=== PATIENT | male | born 1965 | race Two or more races ===

== ENCOUNTER 2019-08-29 10:21 | Day surgery (SDC) | payer BC ==
[2019-08-25 14:59] VITALS: BMI 34.4
--- NOTE | 2019-08-29 08:55 | P.HPIHPCON ---
History of Present Illness H&P Date: 08/29/19 Chief Complaint: bilateral nephrolithasis Mr Martinez is 54 yo male with hx of right sided ureteral calculi and left side renal calculi. I discussed with him the option of ureteroscopy Vs ESWL. I discussed with him risk and benefit of each procedure. He agreed to proceed with ureteroscopy. I discussed with him risk of bleeding, infection and injury to the ureter. I discussed risk from anesthesia with him. He understood all risks and agreed to proceed Consent for Procedure: I have explained the operation/procedure to the patient, including the risks, benefits, side effects, alternative therapies (including not receiving the proposed treatment or service), the likelihood of the patient achieving his/her goals, and potential recuperation problems for the procedure/sedation/analgesia, as well as any blood products, if indicated. I also explained to the patient the risks, benefits and side effects of the alternatives, as well as the risks related to not receiving the proposed procedure, care, treatment, or services. - Constitutional Constitutional: Denies chills, Denies fever - EENT Ears, nose, mouth and throat: Denies headache, Denies sore throat - Cardiovascular Cardiovascular: Denies chest pain, Denies shortness of breath - Respiratory Respiratory: Denies cough, Denies 7 Past Medical History Past Medical History: Diabetes Mellitus, Hypertension Additional Past Medical History / Comment(s): KIDNEY STONES History of Any Multi-Drug Resistant Organisms: None Reported Past Surgical History: Hernia Repair, Orthopedic Surgery Additional Past Surgical History / Comment(s): LT ACHILLES TENDON REPAIR. COLOOSCOPY. REPAIR DEVIATED SEPTUM Past Anesthesia/Blood Transfusion Reactions: No Reported Reaction Smoking Status: Former smoker - Past Family History Mother History Unknown: Yes Family Medical History: Unable to Obtain Additional Family Medical History / Comment(s): PT UNSURE OF FAMILY HX Medications and Allergies Home Medications Medication Instructions Recorded Confirmed Type Acetaminophen-Codeine 300-30mg 1 tab PO Q4H PRN 08/25/19 08/25/19 History [Tylenol w/codeine #3] Ciprofloxacin HCl [Cipro] 500 mg PO BID 08/25/19 08/25/19 History Ketorolac [Toradol] 10 mg PO Q6HR PRN 08/25/19 08/25/19 History Losartan/Hydrochlorothiazide 1 tab PO DAILY 08/25/19 08/25/19 History [Losartan-Hctz 100-12.5 mg Tab] Tamsulosin [Flomax] 0.4 mg PO DAILY 08/25/19 08/25/19 History metFORMIN HCL [Glucophage] 500 mg PO DAILY 08/25/19 08/25/19 History Allergies Allergy/AdvReac Type Severity Reaction Status Date / Time No Known Allergies Allergy Verified 08/25/19 14:46 Surgical - Exam - General well developed, well nourished, no distress - Eyes normal ocular movement, no icteric - ENT no hearing loss, no congestion - Respiratory normal expansion, normal respiratory effort - Abdomen Abdomen: soft, non tender, no guarding, no rigid, no rebound Assessment and Plan Assessment: 54 yo male with hx of right sided ureteral stone and left sided renal stone -OR for bilateral ureteroscopy w/holmium laser and stent placement
[~2019-08-29 10:21] MED LIST: DEXAMETHASONE SOD PHOSPHATE 10 MG/ML 1 ML VIAL IV ONE; LACTATED RINGERS 1,000 ML IV SCH; LIDOCAINE 1% (10MG/ML) FOR IV START INTRADERMA PRN; MIDAZOLAM 2 MG/2 ML VIAL IV PRN
[2019-08-29 10:57] VITALS: RESP 16
--- NOTE | 2019-08-29 10:58 | XR ---
KUB HISTORY: Preop lithotripsy, bilateral stones Frontal KUB and 2 images There is a calcification present in the right hemipelvis. It measures approximately 6 to 7 mm in grea test dimension. There are overlying artifacts. Bowel gas may obscure detail overlying the kidneys. Qu estionable calcification superimposed over the upper pole the left kidney. No evident bowel obstructi on or pneumoperitoneum. There is multilevel spondylosis present. Bone mineralization is normal. IMPRESSION: There may be a distal right ureteral calculus. Possible nephrolithiasis. Additional findi ngs above.
[2019-08-29 11:08] LABS: Glucose,Whole Blood 131 mg/dL (75-99)
[2019-08-29] MEDS ORDERED: ONDANSETRON 4 MG/2 ML VIAL IVP ONE (11:12)
[2019-08-29] MEDS ORDERED: PROPOFOL 10 MG/ML 20 ML VIAL IV ONE (13:12)
[2019-08-29] MEDS ORDERED: fentaNYL (PF) 50 MCG/ML 2 ML AMP ONE (13:12)
[2019-08-29] MEDS ORDERED: GLYCOPYRROLATE 0.2 MG/ML 2 ML VIAL ONE (13:12)
[2019-08-29] MEDS ORDERED: LIDOCAINE 1% INJ 10MG/ML (20 ML MDV) ONE (13:12)
[2019-08-29] MEDS ORDERED: NEOSTIGMINE 1 MG/ML 10 ML VIAL ONE (13:12)
[2019-08-29] MEDS ORDERED: ROCURONIUM BROMIDE 10 MG/ML 5 ML VIAL IV ONE (13:12)
[2019-08-29] MEDS ORDERED: SUCCINYLCHOLINE CHLORIDE 100 MG/5 ML SYR IV ONE (13:12)
[2019-08-29] MEDS ORDERED: MIDAZOLAM 2 MG/2 ML VIAL ONE (13:12)
[2019-08-29] MEDS ORDERED: IOPAMIDOL-370 50ML BTL INJ ONE ×2 (13:33)
[2019-08-29 15:15] VITALS: TEMP 96.8
--- NOTE | 2019-08-29 15:19 | FL ---
Fluoroscopy HISTORY: Bilateral kidney stones 50 seconds fluoroscopy time supplied to the referring clinician. 2 intraoperative C-arm images docum ent the procedure. See dictated report from urology.
[2019-08-29 15:23] LABS: Glucose,Whole Blood 149 mg/dL (75-99)
[2019-08-29] MEDS: HYDROmorphone 0.5 MG/0.5 ML SYRINGE IVP PRN ×2 (15:25→15:36)
[2019-08-29] MEDS ORDERED: SODIUM CHLORIDE 0.9% 1,000 ML IV ONE ×3 (15:41)
[2019-08-29 16:54] VITALS: BP 156/90; PULSE 80
--- NOTE | 2019-09-01 17:57 | P.OP ---
Date of Procedure: 08/29/19 Preoperative Diagnosis: right ureteral calculi/Left renal calculi Postoperative Diagnosis: same Procedure(s) Performed: Cystoscopy,bilateral ureteroscopy, holmium laser lithotripsy, stone basketting and stent placement Implants: 6Fr X 26 cm stent bilaterally Anesthesia: GETA Surgeon: Rashid Werner Estimated Blood Loss (ml): 10 Pathology: other (right ureteral stone, left renal stone) Condition: stable Disposition: PACU Indications for Procedure: Mr Martinez is 54 yo male with hx of right sided ureteral calculi and left side renal calculi. I discussed with him the option of ureteroscopy Vs ESWL. I discussed with him risk and benefit of each procedure. He agreed to proceed with ureteroscopy. I discussed with him risk of bleeding, infection and injury to the ureter. I discussed risk from anesthesia with him. He understood all risks and agreed to proceed Operative Findings: right distal ureteral stone, left midpole renal stone, both stones fragmented using the holmium laser Description of Procedure: The patient was brought to the operating room, general anesthesia was induced. He was prepped and draped in sterile fashion and was placed in a dorsal lithotomy position. Cystoscope fitted with a 22 sheath was inserted per urethra, cystoscopy of the bladder was performed showed no abnormality within the bladder. Attention was then carried to the right ureteral orifice which was intubated with a sensor wire. Of note ureteral orifice was narrowed decision was made to proceed with ureteral balloon dilation on the right side. The balloon dilator was passed over the wire and the ureteral orifice was dilated using the balloon dilator. The balloon dilator was withdrawn with the wire in place. The cystoscope was removed. Next a semirigid ureteroscope was inserted per urethra and advanced up the right ureteral orifice. A stone was encountered in the distal ureter. The stone was fragmented using the holmium laser. The fragments were removed using the ZeroTip stone basket. After all the fragments were removed the ureteroscope was advanced past the stone site and up into the UPJ. No additional stones were encountered. Pullback ureteroscopy showed no additional stones or injury to the ureter. Next the cystoscope was backloaded over the wire. A 6-Lao by 26 cm stent was passed over the wire. The proximal curl was visulized on fluoroscopy, and the distal curl was visualized using the cystoscope. Attention was then carried to the left side. Which was intubated with a sensor wire. the cystoscope was removed with the wire in place, next a 1113 Lao access sheath was passed over the wire and into the proximal ureter. Flexible ureteroscope was inserted through the access sheath and advanced up into the renal pelvis. Renoscopy was performed which showed a stone in the midpole. Using the holmium laser the stone was fragmented into smaller fragments. The fragments were removed using the stone basket. Repeat ureteroscopy showed no injury to the renal pelvis, and no additional sizable fragments. At this time pullback ureteroscopy was performed which showed no injury to the ureter or any residual stones. Next a cystoscope was inserted and a 6-Lao by 26 cm stent was passed over the wire. The proximal curl was visualized on fluoroscopy and the distal distal curl was visualized using the cystoscope. The bladder was emptied and then the case. The patient tolerated procedure well and taken to PACU in stable condition
== END 2019-08-29 17:17 | disposition home or self-care (01) ==
LOC: OR 10:21
PROVIDERS: ATTEND Urology
DX: N20.2 Calculus of kidney with calculus of ureter (principal); I10 Essential (primary) hypertension; E11.9 Type 2 diabetes mellitus without complications; Z98.890 Other specified postprocedural states; Z87.442 Personal history of urinary calculi; Z87.891 Personal history of nicotine dependence; Z79.84 Long term (current) use of oral hypoglycemic drugs; Z79.899 Other long term (current) drug therapy
CPT/HCPCS: 74018; 52356; C2625; C1769; J2250; J1100; J2710; J2405; J2001; J3010; J0330; J2704; J1170; Q9967

== ENCOUNTER → 2022-10-08 | Outpatient (CLI) | payer BC ==
--- NOTE | 2022-10-08 16:39 | US ---
EXAMINATION TYPE: US scrotum with doppler. Grayscale and color Doppler Duplex imaging performed of giuseppe trejo scrotum. DATE OF EXAM: 10/08/2022 COMPARISON: NONE CLINICAL INDICATION: Male, 57 years old with history of N50.89 OTHER SPECIFIED DISORDERS OF THE MALE GENITAL ORGANS; Right testicular pain. Hx of inguinal hernias. EXAM MEASUREMENTS: TESTICLES: Right Testicle: 3.8 x 3.6 x 1.9 cm Left Testicle: 3.4 x 2.6 x 1.6 cm EPIDIDYMIS HEAD: Right Epididymis: 0.9 x 0.9 x 0.7 cm Left Epididymis: 1.0 x 0.9 x 0.6 cm Doppler performed to assess for testicular vascularity; good bilateral color flow and waveforms are s een. There is no evidence of testicular torsion. Presence of hydroceles: Small left Presence of varicoceles: left medial Right inguinal area of pain scanned. Possible inguinal hernia, valsalva performed. Possible skin thickening visualized. IMPRESSION: 1. Appropriate arterial and spectral venous waveforms to the testes. 2. Left varicocele. 3. Left trace hydrocele. 4. Mild skin thickening correlate for infection. 5. Small hiatal inguinal hernia suspected. Consider CT hernia protocol for confirmation.
== END | disposition home or self-care (01) ==
LOC: RADUSWWP 14:52
PROVIDERS: ATTEND Urology
DX: I86.1 Scrotal varices (principal); N43.3 Hydrocele, unspecified; R23.4 Changes in skin texture; N50.89 Other specified disorders of the male genital organs
CPT/HCPCS: 76870; 93975

== ENCOUNTER → 2024-04-08 | Outpatient (CLI) | payer BC ==
[~2024-04-08] MED LIST changes: -DEXAMETHASONE SOD PHOSPHATE 10 MG/ML 1 ML VIAL IV ONE; -LACTATED RINGERS 1,000 ML IV SCH; -LIDOCAINE 1% (10MG/ML) FOR IV START INTRADERMA PRN; -MIDAZOLAM 2 MG/2 ML VIAL IV PRN; +REGADENOSON 0.4 MG/5 ML SYRINGE IV PRN
--- NOTE | 2024-04-08 10:26 | CA ---
Lexiscan Nuclear Stress Test Report Name: Juve Martinez Exam Date: 04/08/2024 08:47 Exam Location: [place] Stress Ht (in): 71 Wt (lb): 230 BSA: 2.24 Ordering Phys: Chucky Witt MD Referring Phys: NAMRATA, Technologist: José Miguel Hagen Age: 58 Gender: M : 1965 Procedure CPT: Indications: I20.9 Angina ICD-10 Codes: Patient History: DIFFICULTY IN BREATHING, HTN, DIABETIC, ANGINA, FAMILY HX OF HEART DISEASE, PRIOR SMOKER, ASTHMA Medications: LOSARTAN,,,,,, MOUNJARO,,,,,, TESTOSTERONE,,,,, Meds past 24 hrs: Pretest Chest Pain: STRESS TEST Lexiscan Protocol Exercise Duration (min:sec): 02:[address] Depressions (mm): Angina Score: Cuevas Score: Resting HR (bpm): 74 Peak HR (bpm): 97 Resting BP (mmHg): 121 / 72 Peak BP (mmHg): / 64 MPHR: 160 Target HR: 136 % MPHR: 61 METS: 1.0 Total Dose: Peak Dose: Atropine: Double Product: BP Response: Stress Termination: INFUSION COMPLETE Stress Symptoms: NO SYMPTOMS Stress Summary: ECG ANALYSIS Resting ECG: Stress ECG: CONCLUSIONS Baseline EKG revealed a normal sinus rhythm without significant ST and T-wave changes. With Lexiscan and mentation the heart rate change from 74-91 bpm and blood pressure changed from 121/72-114/64. Patient was asymptomatic. EKG was unremarkable. This is a unremarkable Lexiscan stress test. The nuclear scan results will be reported with radiologist Dr. Jacobo Bhatti MD (Electronically Signed) Final Date: 08 April 2024 10:25
--- NOTE | 2024-04-08 13:04 | NM ---
EXAMINATION TYPE: NM stress lexiscan cardiolite DATE OF EXAM: 04/08/2024 COMPARISON: NONE CLINICAL INDICATION: Male, 58 years old with history of I20.9 ANGINA; TECHNIQUE: After the intravenous administration of 9.0 mCi Tc 99m Sestamibi - Cardiolite resting SPE CT images acquired 45 minutes post injection. The patient received 0.4mg Lexiscan, 24.2 mCi Tc 99m Sestamibi - Stress images obtained [address] injection FINDINGS: Review of stress and rest SPECT images demonstrates no distinct perfusion abnormality. There is a sm all fixed perfusion defect along the apical anteroseptal wall. No discrete reversibility is seen. Gat ed analysis shows normal wall motion with an estimated left ventricular ejection fraction of 53 %. T ID calculated upper limits of normal at 1.12. IMPRESSION: 1. Small fixed perfusion defect along the apical anteroseptal wall. Unclear if this corresponds to ar ea of old infarct or attenuation artifact. Clinically correlate. 2. No scintigraphic evidence for inducible ischemia. 3. Estimated LVEF borderline at 53%. [facility], , 04/08/2024 1:02 PM
== END | disposition home or self-care (01) ==
LOC: RADNMMAIN 07:22
PROVIDERS: ATTEND Family Medicine
CPT/HCPCS: 78452; 93017